=== PATIENT | male | born 1995 | race Caucasian/White ===

== ENCOUNTER 2019-04-18 14:11 | Emergency (ER) | payer BC ==
[~2019-04-18] VITALS: Ht 167.6 cm; Wt 77.3 kg
[2019-04-18 14:15] VITALS: BP 123/79; PULSE 80; RESP 16; Ht 167.6 cm; Wt 77.3 kg
[2019-04-18] MEDS ORDERED: LORAZEPAM 1 MG TAB PO ONE (14:30)
[2019-04-18] MEDS ORDERED: LORAZEPAM 2 MG INJ IV ONE (15:00)
[2019-04-18] MEDS ORDERED: SOD CHLORIDE 0.9% 500 ML IV ONE (15:00)
--- NOTE | 2019-04-18 15:03 | ERD ---
ER Documentation Chief Complaint Chief Complaint PANIC ATTACK AT HOME. NO COMPLAINTS NOW. HPI Patient is a 24-year-old male presented to ED with his brothers. The brother states he came home and saw his brother on the ground shaking. The brother states he does not have a history of seizures and that this is never happened to him before. The brother states that they do have a family history of seizures that their aunt has a history of epilepsy. The patient appears alert and oriented x4 and he is in no acute distress. Patient denies any past medical history and states that he has been feeling fine the last few days. The patient does not remember the episode and cannot remember how long he was out for. ROS All systems reviewed and are negative except as per history of present illness. Medications Home Meds Active Scripts Acetaminophen* (Tylophen*) 500 Mg Capsule, 1 CAP PO Q6H PRN for PAIN AND OR ELEVATED TEMP, #20 CAP Prov:LORIN DIAZ PA-C 04/18/19 Electrolytes (Pedialyte [facility]) 1,000 Ml Solution, 1000 ML PO 5 TIMES DAILY for 7 Days Prov:LORIN DIAZ PA-C 04/18/19 Allergies Allergies: Coded Allergies: No Known Allergy (Unverified , 04/18/19) PMhx/Soc Medical and Surgical Hx: pt denies Medical Hx, pt denies Surgical Hx FmHx Family History: No diabetes, No coronary disease, No other Physical Exam Vitals Vital Signs Date Temp Pulse Resp B/P (MAP) Pulse Ox O2 O2 Flow FiO2 Time Delivery Rate 04/18/19 98.0 80 16 123/79 97 14:15 (94) Physical Exam GENERAL: Anxious HEENT: Atraumatic. Conjunctivae are pink. Pupils equal, round, and reactive to light. There is no scleral icterus. Tympanic membranes clear bilaterally. Oropharynx clear. No nystagmus or photophobia. NECK: C-spine is soft and supple. There is no meningismus. There is no cervica l lymphadenopathy. CHEST: Clear to auscultation bilaterally. There are no rales, wheezes or rhonc hi. HEART: Regular rate and rhythm. No murmurs, clicks, rubs or gallops. ABDOMEN:Soft, nontender and nondistended. Good bowel sounds. No rebound or guarding. No gross peritonitis. No gross organomegaly or masses. No Clemens sign or McBurney point tenderness. EXTREMITIES: Equal pulses bilaterally. There is no peripheral clubbing, cyanosis or edema. No focal swelling or erythema. Full range of motion. Grossly neurovascularly intact. Patient does have a soft cast on his right hand but he has good sensation and motor function in his right digits. Brachial pulse was palpated and was equal bilateral. NEUROLOGIC: Alert and oriented. Cranial nerves II through VII intact. Motor strength in all 4 extremities with 5 out of 5 strength. Sensation grossly intact. Normal speech and gait. Result Diagram: 04/18/19 1446 04/18/19 1446 Results 24 hrs Laboratory Tests Test 04/18/19 14:46 White Blood Count 9.6 10^3/ul Red Blood Count 5.48 10^6/ul Hemoglobin 16.3 g/dl Hematocrit 49.7 % Mean Corpuscular Volume 90.7 fl Mean Corpuscular Hemoglobin 29.7 pg Mean Corpuscular Hemoglobin Concent 32.8 g/dl Red Cell Distribution Width 11.8 % Platelet Count 248 10^3/UL Mean Platelet Volume 10.2 fl Immature Granulocytes % 0.400 % Neutrophils % 69.6 % Lymphocytes % 22.1 % Monocytes % 5.9 % Eosinophils % 1.5 % Basophils % 0.5 % Nucleated Red Blood Cells % 0.0 /100WBC Immature Granulocytes # 0.040 10^3/ul Neutrophils # 6.7 10^3/ul Lymphocytes # 2.1 10^3/ul Monocytes # 0.6 10^3/ul Eosinophils # 0.1 10^3/ul Basophils # 0.1 10^3/ul Nucleated Red Blood Cells # 0.0 10^3/ul Urine Color YELLOW Urine Clarity CLEAR Urine pH 7.0 Urine Specific Springer 1.023 Urine Ketones TRACE mg/dL Urine Nitrite NEGATIVE mg/dL Urine Bilirubin NEGATIVE mg/dL Urine Urobilinogen 2+ mg/dL Urine Leukocyte Esterase NEGATIVE Hortencia/ul Urine Hemoglobin NEGATIVE mg/dL Urine Glucose NEGATIVE mg/dL Urine Total Protein NEGATIVE mg/dl Sodium Level 143 mmol/L Potassium Level 4.1 mmol/L Chloride Level 104 mmol/L Carbon Dioxide Level 27 mmol/L Anion Gap 12 Blood Urea Nitrogen 16 mg/dl Creatinine 1.08 mg/dl Est Glomerular Filtrat Rate mL/min > 60 mL/min Glucose Level 96 mg/dl Calcium Level 9.7 mg/dl Total Bilirubin 0.8 mg/dl Direct Bilirubin 0.00 mg/dl Indirect Bilirubin 0.8 mg/dl Aspartate Amino Transf (AST/SGOT) 25 IU/L Alanine Aminotransferase (ALT/SGPT) 23 IU/L Alkaline Phosphatase 48 IU/L Total Protein 7.6 g/dl Albumin 4.6 g/dl Globulin 3.00 g/dl Albumin/Globulin Ratio 1.53 Urine Opiates Screen NEGATIVE Urine Barbiturates NEGATIVE Urine Amphetamines Screen NEGATIVE Urine Benzodiazepines Screen NEGATIVE Urine Cocaine Screen NEGATIVE Urine Cannabinoids POSITIVE Current Medications Medications Dose Sig/Jesus Start Time Status Last (Trade) Ordered Route PRN Stop Time Admin Dose Reason Admin Lorazepam 1 mg ONCE ONCE 04/18/19 Cancel (Ativan) PO 14:30 04/18/19 14:31 Lorazepam 1 mg ONCE ONCE 04/18/19 DC (Ativan) IV 15:00 04/18/19 15:00 Sodium 500 ml @ Q1H ONCE 04/18/19 DC 04/18/19 Chloride 500 mls/hr IV 15:00 14:47 04/18/19 15:59 Procedures/MDM ED course: CBC, CMP, UA, urine drug screen, head CT without contrast IV Ativan was ordered patient is refusing. The patient was stable throughout the ED course. The patient and/or family informed of laboratory and diagnostic imaging results throughout the ED course. Diagnostic imaging: Read by radiologist Hilario Cameron MD PROCEDURE: CT Brain without contrast. CLINICAL INDICATION: Seizure. Headache. TECHNIQUE: A CT of the brain without contrast was performed utilizing axial sections from the skull base through the vertex. One or more the following does reduction techniques were utilized: Automated exposure control, adjustment of the mA/ or kV according to patient's size, or use of iterative reconstruction technique. Total exam CTDIvol is 39 MGy and DLP is 634 mGy-cm. DICOM images are available. COMPARISON: None available. FINDINGS: The ventricles and sulci are age-appropriate. There is no intracranial hemorrhage, mass effect or midline shift. No abnormal intra-axial or extra- axial fluid collections are seen. The bess/white matter differentiation is preserved. No acute skull abnormality is noted. The visualized paranasal sinuses are essentially clear. IMPRESSION: 1. No acute intracranial hemorrhage, transcortical infarction or mass effect. If clinical concern persists consider follow-up brain MRI with seizure protocol. Medications given in ER: Normal saline Ativan withheld because patient refused Patient tolerated medication well with no adverse reactions. Patient reported improvement in pain. Medical decision makin-year-old male presented to ED for possible seizure. Patient's brother brought him to the ED and states when he came into the house his brother was on the ground and was shaking. The patient is alert oriented x4 and appears to be in no acute respiratory distress and vitals are within normal limits. Patient states he has never had a seizure before. Patient cannot recall the events leading up to the episode. The patient denies any drug or alcohol use. Ativan was ordered but the patient refused. Patient's neuro exam was unremarkable. Patient's lungs clear bilateral. Patient's abdominal exam was unremarkable. The patient has no cuts or bruises and appears to suffer no head trauma. The patient does have a cast on his right hand and states that he punched a wall the other day. Patient CBC and CMP were unremarkable. Patient's head CT showed no signs of lesions or mass or bleeds. Patient's urine drug screen was positive for marijuana. I advised the patient that he should stop smoking marijuana and that could of been what triggered the event. Physical exam revealed the patient was afebrile did not have a stiff neck, no headache, no loss of vision, no increased head pain patient's physical exam showed no focal motor or neuro deficits the patient appears to be doing much better. I advised the patient that he cannot drive until he follows up with his PCP. I advised the patient he is follow-up with his primary care provider tomorrow. I advised the patient that if symptoms worsen he needs to return to ER immediately. At this time I have low suspicion for CVA, TIA,intracranial hemorrhage, meningitis, encephalitis, CO poisoning, temporal arteritis, benign intracranial hypertension, intracranial mass, glaucoma, sinusitis, tension headache, migraine headache, cluster headache. The patient plans to follow-up with his primary care provider tomorrow. Patient no further questions upon discharge and understands that he cannot drive until this is further evaluated. The patient had no further questions upon discharge Prescription for home: Acetaminophen Pedialyte I have discussed with the patient proper use and common side effects to expert with the medication . I advised the patient/family to speak with the armacist dispensing the medication to be advised of any potential drug interactions with other medication or supplements they may be taking. Discharge: At this time, patient is stable for discharge and outpatient management. I have instructed the patient to follow-up with his\her primary care physician in 1 to 2 days. I have discussed with the patient the possibility of needing to see a specialist for further work-up and imaging studies if symptoms persist. I have instructed the patient to promptly return to the ER for any new or worsening symptoms including increased pain, fever, nausea, vomiting, weakness or LOC. The patient and\or family expressed understanding of and agreement with this plan. All questions were answered. Home care instructions were provided. Disclaimer: Inadvertent spelling and grammatical errors are likely due to EHR\dictation software use and do not reflect on the overall quality of patient care. Also, please note that the electronic time recorded on the note does not necessarily reflect the actual time of the patient encounter. Departure Diagnosis: Primary Impression: Seizure Condition: Stable LORIN DIAZ PA-C Apr 18, 2019 15:03
[2019-04-18] MEDS ORDERED: ELEC100095 PO (15:04)
[2019-04-18] MEDS ORDERED: ACET500C5 PO (15:04)
== END 2019-04-18 16:05 | disposition home or self-care (01) ==
LOC: FTE 14:11
DX: G40.909 Epilepsy, unspecified, not intractable, without status epilepticus (principal); R51 Headache
CPT/HCPCS: 70450; 80053; 80307; 81003; 85025; Z7502; J2060